=== PATIENT | male | born 1935 | race Caucasian/White ===

== ENCOUNTER → 2018-02-17 | Outpatient (CLI) | payer MEDICARE, OTHER ==
--- NOTE | 2018-02-17 15:34 | RAD ---
3 view study of the lumbar spine Clinical indications: Back pain for a couple of weeks. Pain extends down the legs. FINDINGS: No compression fracture or discitis or osteolytic process is evident. No anterolisthesis is seen. Prominent degenerative endplate spurring and mild disc space narrowing is seen throughout the lumbar spine. The transverse processes are intact. IMPRESSION: No acute compression fracture. Moderate degenerative lumbar spondylosis. Electronically signed by: Trace Wilkinson MD (02/17/2018 3:31 PM) [facility]
--- NOTE | 2018-02-17 15:36 | RAD ---
AP view of the pelvis and frog-leg view of both hips Clinical indications: Hip pain for a couple of weeks. Pain extends down the legs. FINDINGS: The hip joints are symmetric without significant arthritic change. No acute fracture or osteolytic process is evident. No diastases is evident. IMPRESSION: No significant osseous abnormality. Electronically signed by: Trace Wilkinson MD (02/17/2018 3:32 PM) [email or web address]
== END | disposition home or self-care (01) ==
LOC: DXRAD 11:31
DX: M47.896 Other spondylosis, lumbar region (principal); M48.061 Spinal stenosis, lumbar region without neurogenic claudication
CPT/HCPCS: 72100; 73521